=== PATIENT | male | born 1955 | race African-American/Black ===

== ENCOUNTER 2017-09-08 08:12 | Day surgery (SDC) | payer OTHER ==
[2017-09-05 10:46] VITALS: BMI 32.3
[2017-09-08 08:52] VITALS: TEMP 98
--- NOTE | 2017-09-08 11:31 | OP ---
Operative Note - Note: Operative Date: 09/08/17 Pre-Operative Diagnosis: Left Renal stone Operation: Left ESWL Findings: 8 mm mid pole stone Surgeon: Denys Lemos Anesthesia: Fractional
[2017-09-08 12:53] VITALS: BP 119/58; PULSE 66
--- NOTE | 2017-09-09 09:09 | OP ---
DATE OF OPERATION: 09/08/2017 PREOPERATIVE DIAGNOSIS: Left renal stone. POSTOPERATIVE DIAGNOSIS: Left renal stone. PROCEDURE: Left extracorporeal shock wave lithotripsy. ATTENDING: Carlos Noyola MD ANESTHESIA: Fractional. OPERATION: The patient was brought into the operating room, placed in supine position on the operating room table. An 8-mm left mid-pole stone was identified. Anesthesia was then administered as was preoperative antibiotics. Then, 2500 impulses with 20 joules of power were administered to the stone with excellent fragmentation noted under real-time ultrasonography and fluoroscopy. No complications were noted. The patient tolerated the procedure very well. CARLOS NOYOLA M.D. /[id number]
== END 2017-09-08 13:13 | disposition home or self-care (01) ==
LOC: JASU-SURG 08:12
PROVIDERS: ATTEND Urology
PROC: 0TF4XZZ Fragmentation in Left Kidney Pelvis, External Approach (ICD-10-PCS; principal; 2017-09-08 10:15)
DX: N20.0 Calculus of kidney (principal)

== ENCOUNTER 2017-10-06 06:06 | Day surgery (SDC) | payer OTHER ==
[2017-10-02 15:18] VITALS: BMI 32.3
[2017-10-06] MEDS ORDERED: ONDANSETRON 4 MG/2 ML VIAL IVPUSH PRN (08:30)
[2017-10-06] MEDS ORDERED: LACTATED RINGERS SOLUTION 1,000 ML IV SCH (08:30)
[2017-10-06] MEDS ORDERED: oxyCODONE HCL 5 MG TABLET PO PRN (08:30)
--- NOTE | 2017-10-06 09:18 | OP ---
Operative Note - Note: Operative Date: 10/06/17 Pre-Operative Diagnosis: Right kidney stone Operation: Right ESWL Findings: 6 mm mid pole Right kidney stone Post-Operative Diagnosis: Same as Pre-op Surgeon: Denys Lemos Anesthesia: Fractional Operative Report Dictated: Yes
[2017-10-06 13:14] VITALS: BP 126/64; PULSE 70
[2017-10-06 14:31] VITALS: TEMP 98
--- NOTE | 2017-10-06 21:11 | OP ---
DATE OF OPERATION: 10/06/2017 PREOPERATIVE DIAGNOSIS: Right renal stone. POSTOPERATIVE DIAGNOSIS: Right renal stone. PROCEDURE: Right extracorporeal shock wave lithotripsy. ATTENDING: Carlos Noyola MD ANESTHESIA: Fractional. DESCRIPTION OF OPERATION: The patient was brought in the operating room and placed in supine position on the operating room table. Ultrasonography and fluoroscopy were performed. A 6-mm right mid-pole stone was identified. Anesthesia and preoperative antibiotics were then administered. At this point, shock wave lithotripsy was started; 2500 impulses at 20 joules of power were administered. No complications were noted. The patient tolerated the procedure very well. The disposition of the patient was to recovery room. CARLOS NOYOLA M.D. [id number]
== END 2017-10-06 13:26 | disposition home or self-care (01) ==
LOC: JASU-SURG 06:06
PROVIDERS: ATTEND Urology
PROC: 0TF3XZZ Fragmentation in Right Kidney Pelvis, External Approach (ICD-10-PCS; principal; 2017-10-06 08:00)
DX: N20.0 Calculus of kidney (principal)
CPT/HCPCS: 94760

== ENCOUNTER 2017-12-22 06:08 | Day surgery (SDC) | payer OTHER ==
[2017-12-19 07:58] VITALS: BMI 31.9
[2017-12-22] MEDS ORDERED: oxyCODONE HCL 5 MG TABLET PO PRN (08:27)
[2017-12-22] MEDS ORDERED: ONDANSETRON 4 MG/2 ML VIAL IVPUSH PRN (08:27)
[2017-12-22] MEDS ORDERED: LACTATED RINGERS SOLUTION 1,000 ML IV SCH (08:30)
[2017-12-22] MEDS ORDERED: ONDANSETRON 4 MG/2 ML VIAL ONE (10:05)
[2017-12-22 10:13] VITALS: TEMP 97.7
[2017-12-22 12:04] VITALS: BP 135/74; PULSE 62
--- NOTE | 2017-12-22 12:12 | OP ---
Operative Note - Note: Operative Date: 12/22/17 Pre-Operative Diagnosis: bph Operation: transurethral resection and vaporization of the prostate Findings: 3+ obstructive prostate with 1-2 bladder trabeculation Post-Operative Diagnosis: Same as Pre-op Surgeon: Denys Lemos Anesthesia: General Specimens Removed: prostatic chips Drains & Tubes with Location: [address] Operative Report Dictated: Yes
--- NOTE | 2017-12-22 21:00 | OP ---
DATE OF OPERATION: 12/22/2017 PREOPERATIVE DIAGNOSES: Benign prostatic hypertrophy and neurogenic bladder. POSTOPERATIVE DIAGNOSES: Benign prostatic hypertrophy and neurogenic bladder. PROCEDURE: Transurethral resection and vaporization of the prostate. ATTENDING: Carlos Noyola MD ANESTHESIA: General. DESCRIPTION OF OPERATION: The patient was brought in the operating room, placed in supine position on the operating room table. General anesthesia and preoperative antibiotics were administered. At this point, the patient was placed in dorsal lithotomy position and prepped and draped in the usual sterile manner. A resectoscope with a loop element was placed into the urethra, and the prostatic fossa was visualized. A 3+ obstructive prostate with a moderate median lobe was noted, and 1+ to 2+ bladder trabeculation was noted in the bladder. No evidence of stones or neoplasm was seen. Resection of the prostate was performed with the margins being the verumontanum distally and the bladder neck proximally. The bipolar system was utilized with the loop element. The prostate was initially debulked. With this accomplished, all prostatic elements were removed. It was noted at this point that there was a broken tip of the resectoscope. The bladder was inspected, and the porcelain pieces from the tip of the resectoscope were evacuated from the bladder. There were no other remnants left in the bladder. The remnants measured a few millimeters in size. At this point, the button element was placed on the resectoscope, and vaporization of the prostate was performed extending from the bladder neck to the verumontanum in a 360-degree fashion. The depths of the vaporization were the pseudocapsule of the prostate. Excellent hemostasis was obtained. The patient was left with a 24-Maldivian catheter to light traction. No complications were noted. The disposition of the patient was to the recovery room. CARLOS NOYOLA M.D. [id number]
--- NOTE | 2017-12-23 17:16 | PATH ---
Surgical Pathology Report Patient Name: YOJANA SPENCE [facility]. Rec. #: [id number] /Age/Gender: 1955 (Age: 62) / M Account: [id number] Location: [facility] Taken: 12/22/2017 Received: 12/22/2017 Reported: 12/23/2017 Physicians: Denys Lemos Specimen(s) Received TISSUE OF PROSTATE Clinical History BPH Final Diagnosis PROSTATE, TRANSURETHRAL RESECTION OF PROSTATE: BENIGN PROSTATIC TISSUE WITH FOCAL CYSTIC CHANGES, GLANDULAR AND STROMAL HYPERPLASIA. Electronically Signed aFith Mckeon M.D. Gross Description Received in formalin labeled "prostate tissue" are multiple fragments of pink-graham tissue weighing 6 g and measuring 4 x 4 x 1 cm in aggregate. Entire specimen submitted in 3 cassettes. JUAN CARLOS/12/22/2017 vic/12/22/2017
== END 2017-12-22 12:00 | disposition home or self-care (01) ==
LOC: JASU-SURG 06:08
PROVIDERS: ATTEND Urology
PROC: 0VT08ZZ Resection of Prostate, Via Natural or Artificial Opening Endoscopic (ICD-10-PCS; principal; 2017-12-22 08:00)
DX: N40.1 Benign prostatic hyperplasia with lower urinary tract symptoms (principal); N31.8 Other neuromuscular dysfunction of bladder; Z21 Asymptomatic human immunodeficiency virus [HIV] infection status
CPT/HCPCS: 86850; 86900; 86901; 88305-TC; 94760

== ENCOUNTER 2018-03-17 08:59 | Day surgery (SDC) | payer OTHER ==
[2018-03-17 09:53] VITALS: BMI 32.3
[2018-03-17 10:42] VITALS: TEMP 97.5
[2018-03-17 11:35] VITALS: BP 130/66; PULSE 60
--- NOTE | 2018-03-18 10:09 | PATH ---
Surgical Pathology Report Patient Name: YOJANA SPENCE [facility]. Rec. #: [id number] /Age/Gender: 1955 (Age: 62) / M Account: [id number] Location: [facility]-ENDOSCOPY Taken: 03/17/2018 Received: 03/17/2018 Reported: 03/18/2018 Physicians: Armond Hernandez D.O. Specimen(s) Received BX SIGMOID Clinical History Colon screening, change in bowel habits Postoperative diagnosis: Colon polyp, hemorrhoids Final Diagnosis SIGMOID COLON, POLYP BIOPSY: HYPERPLASTIC POLYP. Electronically Signed Faith Mckeon M.D. Gross Description Received in formalin, labeled "sigmoid polyp" is a graham, irregular portion of soft tissue measuring 0.3 cm. in greatest dimension. The specimen is submitted in toto in one cassette. /03/17/2018 saudi03/17/2018
== END 2018-03-17 12:05 | disposition home or self-care (01) ==
LOC: JASU-ENDO 08:59
PROVIDERS: ATTEND Internal Medicine Gastroenterology
PROC: 0DBN8ZX Excision of Sigmoid Colon, Via Natural or Artificial Opening Endoscopic, Diagnostic (ICD-10-PCS; principal; 2018-03-17 09:30)
DX: K63.5 Polyp of colon (principal); R19.4 Change in bowel habit; K64.8 Other hemorrhoids
CPT/HCPCS: 88305-TC

== ENCOUNTER 2019-02-15 11:04 | Emergency (ER) | payer OTHER ==
[2019-02-15] MEDS ORDERED: SODIUM CHLORIDE 1,000 ML IV STA (12:37)
[2019-02-15 12:38] VITALS: BP 133/77; PULSE 64; TEMP 97.8; BMI 30.9
[2019-02-15] MEDS ORDERED: ACETAMINOPHEN 1000 MG/100 ML VIAL (NON FORMULARY) IVPB ONE (12:38)
--- NOTE | 2019-02-15 13:01 | PDOC ---
History of Present Illness - General Chief Complaint: Headache Stated Complaint: HEADACHE Time Seen by Provider: 02/15/19 12:02 History Source: Patient - History of Present Illness Initial Comments: 02/15/19 12:08 63-year-old male with history of HIV and depression presents to ED with c/o throbbing pressure to his forehead since Friday after taking Cialis 20 mg 1 hour prior to onset. Patient states took 20 mg and during sexual intercourse she developed a headache. Patient denies any visual changes, weakness, nausea but does state mild dizziness. Patient states has taken Advil and Excedrin with no improvement and so decided to come to the ER. Patient also states intermittent low back pain with mild urinary frequency over the past week without fever, chills abdominal pain or hematuria. Timing/Duration: reports: other Severity: Yes: mild Associated Symptoms: reports: other. denies: nausea/vomiting, slurred speech, vision changes, weakness Past History - Travel Traveled outside of the country in the last 30 days: No - Past Medical History Allergies/Adverse Reactions: Allergies Allergy/AdvReac Type Severity Reaction Status Date / Time No Known Allergies Allergy Verified 02/15/19 12:37 Home Medications: Ambulatory Orders Elviteg/Cob/Emtri/Tenof Alafen [Genvoya (Non-Formulary)] 1 each PO DAILY #30 tablet 09/14/18 Pravastatin Sodium 10 mg PO HS #30 tablet 09/14/18 Tamsulosin HCl [Flomax] 2 tab PO DAILY #60 cap.er.24h 09/14/18 Citalopram Hydrobromide [Celexa -] 20 mg PO DAILY #30 tablet 01/28/19 Quetiapine Fumarate [Seroquel] 100 tab PO HS #30 tablet 01/28/19 Anemia: No Asthma: No Cancer: No Cardiac Disorders: No CVA: No COPD: No CHF: No Dementia: No Diabetes: No GI Disorders: Yes (COLON POLYPS) Disorders: Yes (BPH) HTN: No Hypercholesterolemia: Yes HIV: Yes Kidney Stones: No Liver Disease: No Psychiatric Problems: Yes Seizures: No Thyroid Disease: No - Surgical History Abdominal Surgery: No Appendectomy: No Cardiac Surgery: No Cholecystectomy: No Lung Surgery: No Neurologic Surgery: No Orthopedic Surgery: No - Reproductive History Testicular Surgery: No - Immunization History Immunization Up to Date: No - Suicide/Smoking/Psychosocial Hx Smoking History: Current every day smoker Have you smoked in the past 12 months: Yes Number of Cigarettes Smoked Daily: 3 If you are a former smoker, when did you quit?: 3 Cigars Per Day: 0 Information on smoking cessation initiated: No 'Breaking Loose' booklet given: 12/22/17 Hx Alcohol Use: Yes Drug/Substance Use Hx: Yes Substance Use Type: None Hx Substance Use Treatment: No Patient Lives Alone: No Lives with/in: spouse/SO Review of Systems - Review of Systems Able to Perform ROS?: Yes Constitutional: No: Symptoms Reported HEENTM: No: Symptoms Reported Respiratory: No: Symptoms reported Cardiac (ROS): No: Symptoms Reported ABD/GI: No: Symptoms Reported : Yes: Symptoms Reported, Frequency Musculoskeletal: Yes: Symptoms Reported, Back Pain Integumentary: No: Symptoms Reported Neurological: Yes: Headache. No: Numbness, Weakness, Dizziness Psychiatric: No: Change in Appetite Endocrine: No: Symptoms Reported Hematologic/Lymphatic: No: Symptoms Reported *Physical Exam - Vital Signs Last Vital Signs Temp Pulse Resp BP Pulse Ox 97.8 F 64 18 133/77 96 02/15/19 11:05 02/15/19 11:05 02/15/19 11:05 02/15/19 11:05 02/15/19 11:05 - Physical Exam General Appearance: Yes: Nourished, Appropriately Dressed. No: Apparent Distress, Severe Distress HEENT: positive: EOMI, ROBERTO. negative: Pale Conjunctivae Neck: positive: Supple Respiratory/Chest: positive: Lungs Clear, Normal Breath Sounds. negative: Respiratory Distress, Accessory Muscle Use Cardiovascular: positive: Regular Rhythm, Regular Rate. negative: Murmur Gastrointestinal/Abdominal: positive: Soft. negative: Tenderness Musculoskeletal: positive: Vertebral Tenderness (L3-L4 and bilateral paraspinous ). negative: CVA Tenderness Extremity: positive: Normal Inspection Integumentary: positive: Normal Color, Warm, Moist Neurologic: positive: Motor Strength 5/5 (ambulatory). negative: Normal Mood/ Affect (flat affect) ED Treatment Course - LABORATORY CBC & Chemistry Diagram: 02/15/19 14:00 02/15/19 14:00 - RADIOLOGY Radiology Studies Ordered: Category Date Time Status HEAD CT WITHOUT CONTRAST [CT] Stat CT Scan 02/15/19 12:34 Ordered SPINE-LUMBAR ONLY [RAD] Stat Radiology 02/15/19 12:34 Ordered Medical Decision Making - Medical Decision Making 02/15/19 12:04 Chief complaint: Frontal throbbing pressure to the forehead since Friday without nausea, visual changes or weakness. Patient also complaining of low back pain intermittently along with urinary frequency for the past 2 weeks Exam. Patient with normal vital signs but did have tenderness to L3-L4 without CVA tenderness. Plan: Labs, urine, IV fluids, IV Tylenol head CT and lumbar x-ray ordered 02/15/19 17:15 X-ray shows arthritic changes with no findings. head CT negative for acute pathology. patient states feeling better 02/15/19 17:16 Laboratory Tests 02/15/19 02/15/19 02/15/19 14:00 14:00 14:00 WBC 3.6 L Hgb 13.4 Hct 37.8 Absolute Neuts (auto) 1.4 L Neutrophils % 38.9 L Lymphocytes % 47.7 H Sodium 140 Potassium 3.6 Chloride 108 H Carbon Dioxide 28 Anion Gap 5 L BUN 10.4 Creatinine 0.8 Random Glucose 83 Calcium 8.9 Total Bilirubin 0.4 AST 26 ALT 28 Alkaline Phosphatase 81 Total Protein 6.8 Albumin 3.6 Urine Ketones Negative Ur Leukocyte Esterase Negative 02/15/19 17:22 Patient didn't want to wait for his CT and x-ray. Patient was given AMA forms. Results were reviewed with him over the phone *DC/Admit/Observation/Transfer Diagnosis at time of Disposition: Head ache - Discharge Dispostion Disposition: HOME Condition at time of disposition: Improved - Referrals Referrals: Rachana Edgar, [employer] [Primary Care Provider] - - Patient Instructions Printed Discharge Instructions: DI for Headache Additional Instructions: Take Tylenol for discomfort drink plenty of fluids and follow-up with your primary care physician. - Post Discharge Activity
[2019-02-15] MEDS ORDERED: ACETAMINOPHEN INJECTION 100 ML IVPB ONE (13:47)
[2019-02-15 14:28] LABS: EOS % 3.2 % (0-4.5); HEMATOCRIT 37.8 % (35.4-49); HEMOGLOBIN 13.4 GM/dL (11.7-16.9); LYMPH % 47.7 % (8-40); MCH 32.8 pg (25.7-33.7); MCHC 35.5 g/dl (32.0-35.9); MEAN CELL VOLUME 92.3 fl (80-96); MEAN PLT VOLUME 8.5 fl (7.5-11.1); MONO % 9.2 % (3.8-10.2); NEUT % 38.9 % (42.8-82.8); PLATELET COUNT 239 K/MM3 (134-434); RDW 13.6 % (11.9-15.9); WHITE BLOOD COUNT 3.6 K/mm3 (4.0-10.0)
[2019-02-15 14:58] LABS: ALBUMIN 3.6 g/dl (3.4-5.0); BILIRUBIN,TOTAL 0.4 mg/dL (0.2-1); BLOOD UREA NITROGEN 10.4 mg/dL (7-18); CALCIUM 8.9 mg/dL (8.5-10.1); CREATININE 0.8 mg/dL (0.55-1.3); POTASSIUM 3.6 mmol/L (3.5-5.1); TOT PROT 6.8 g/dl (6.4-8.2)
[2019-02-15 15:17] LABS: URINE APPEARANCE Clear; URINE BILIRUBIN Negative (NEGATIVE); URINE COLOR Yellow; URINE GLUCOSE (UA) Negative (NEGATIVE); URINE KETONE Negative (NEGATIVE); URINE LEUK ESTERASE Negative (NEGATIVE); URINE NITRITE Negative (NEGATIVE); URINE PROTEIN Negative (NEGATIVE); URINE UROBILINOGEN 0.2 mg/dL (0.2-1.0)
== END 2019-02-15 16:39 | disposition home or self-care (01) ==
LOC: JER 11:04
PROC: 3E033NZ Introduction of Analgesics, Hypnotics, Sedatives into Peripheral Vein, Percutaneous Approach (ICD-10-PCS; principal; 2019-02-15)
DX: G44.82 Headache associated with sexual activity (principal); Z21 Asymptomatic human immunodeficiency virus [HIV] infection status; E78.00 Pure hypercholesterolemia, unspecified; N40.0 Benign prostatic hyperplasia without lower urinary tract symptoms
CPT/HCPCS: 36415; 70450-TC; 72100-TC-FY; 80053; 81003; 85025; 87086; 96374; 99282-25; J0131; J7030

== ENCOUNTER → 2019-03-09 | Outpatient (CLI) | payer OTHER | LOC: YHH 11:47 ==

== ENCOUNTER 2020-02-07 11:20 | Day surgery (SDC) | payer OTHER ==
[2020-02-04 17:42] VITALS: BMI 30.3
[2020-02-07] MEDS ORDERED: MIDAZOLAM HCL 2 MG/2 ML SINGLE DOSE VIAL ONE (13:55)
--- NOTE | 2020-02-07 14:51 | OP ---
Operative Note - Note: Operative Date: 02/07/20 Pre-Operative Diagnosis: Right renal stone Operation: Right ESWL Findings: 8 mm mid pole Right renal stone Surgeon: Denys Lemos Anesthesia: Regional Estimated Blood Loss (mls): 0 Operative Report Dictated: Yes
[2020-02-07 16:06] VITALS: BP 109/48; PULSE 53; TEMP 97.3
--- NOTE | 2020-02-07 23:33 | OP ---
DATE OF OPERATION: 02/07/2020 PREOPERATIVE DIAGNOSIS: Right renal stone. POSTOPERATIVE DIAGNOSIS: Right renal stone. PROCEDURE: Right extracorporeal shockwave lithotripsy. ATTENDING: Cralos Lemos M.D. ANESTHESIA: Fractional. DESCRIPTION OF PROCEDURE: Patient was brought in the operating room, placed in a supine position on the operating room table. Ultrasonography and fluoroscopy were performed. An 8-mm right midpole stone was identified. At this point anesthesia was administered to the patient as were preoperative antibiotics. Shockwave lithotripsy was then started. The patient received 3000 impulses at 17 joules of power with excellent fragmentation of the stone under real-time ultrasonography and fluoroscopy. There were no complications noted. The patient tolerated the procedure very well. CARLOS NOYOLA M.D. [id number]
== END 2020-02-07 16:05 | disposition home or self-care (01) ==
LOC: JASU-SURG 11:20
PROVIDERS: ATTEND Urology
PROC: 0TF3XZZ Fragmentation in Right Kidney Pelvis, External Approach (ICD-10-PCS; principal; 2020-02-07 13:40)
DX: N20.0 Calculus of kidney (principal)

== ENCOUNTER 2020-03-03 09:45 | Inpatient (IN) | payer OTHER ==
[2020-03-03 09:50] VITALS: BMI 30.6
--- NOTE | 2020-03-03 10:21 | PDOC ---
History of Present Illness - General Chief Complaint: Pain, Acute Stated Complaint: KIDNEY STONES Time Seen by Provider: 03/03/20 10:15 - History of Present Illness Initial Comments: Angle Goncalves is a 64yo man with a PMH of HIV on HAART, BPH, kidney stones s/p ESWL (02/07/20, Dr Lemos), seen in the ED yesterday and found to have a 5mm right renal stone who was sent back to the hospital today from Dr Lemos's office with intractable pain and PO intolerance. He states that he was given ibuprofen from the ED yesterday, but the medication has not been helping despite taking 5 doses since his discharge yesterday (600mg every 2-3 hours). He was seen by Dr Lemos today, who plans to take the pt to the OR today due to the continued pain and multiple episodes of vomiting throughout the night. Past History - Medical History Allergies/Adverse Reactions: Allergies Allergy/AdvReac Type Severity Reaction Status Date / Time No Known Allergies Allergy Verified 03/03/20 09:46 Home Medications: Ambulatory Orders Bictegrav/Emtricit/Tenofov Ala [Biktarvy 50-200-25 mg Tablet] 1 each PO DAILY #30 tablet 01/12/20 Oxybutynin Chloride [Oxybutynin Chloride ER] 1 tab PO DAILY #30 tab.er.24 01/12/20 Tamsulosin HCl [Flomax] 2 tab PO DAILY #60 cap.er.24h 01/12/20 Docusate Sodium [Colace] 100 mg PO BID PRN 02/04/20 Citalopram Hydrobromide [Celexa -] 1 tab PO DAILY #30 tablet 02/17/20 Quetiapine Fumarate [Seroquel -] 100 mg PO HS #30 tablet 02/17/20 Ibuprofen 600 mg PO TID #21 tablet 03/02/20 Anemia: No Asthma: No Cancer: No Cardiac Disorders: No CVA: No COPD: No CHF: No Dementia: No Diabetes: No GI Disorders: Yes (COLON POLYPS) Disorders: Yes (BPH) HTN: No Hypercholesterolemia: Yes Kidney Stones: No Liver Disease: No Psychiatric Problems: Yes Seizures: No Thyroid Disease: No - Surgical History Abdominal Surgery: No Appendectomy: No Cardiac Surgery: No Cholecystectomy: No Lung Surgery: No Neurologic Surgery: No Orthopedic Surgery: No - Reproductive History Testicular Surgery: No - Immunization History Immunization Up to Date: No - Psycho-Social/Smoking History Smoking History: Current every day smoker Have you smoked in the past 12 months: Yes Number of Cigarettes Smoked Daily: 3 If you are a former smoker, when did you quit?: 3 Cigars Per Day: 0 Information on smoking cessation initiated: No 'Breaking Loose' booklet given: 12/22/17 - Substance Abuse Hx (Audit-C & DAST Scrn) How often the patient has a drink containing alcohol: Never Score: In Men: 4 or > Positive; In Women: 3 or > Positive: 0 Screen Result (Pos requires Nsg. Audit-10AR): Negative Review of Systems - Review of Systems Comments:: General: No fevers, no chills, no weight or appetite change, no malaise HEENT: No changes in vision, no changes in hearing, no congestion, no sore throat CV: No chest pain, no palpitations, no LE edema Pulm: No SOB, no cough, no wheezing GI: No nausea or vomiting, no change in bowel habits, no melena : See HPI Musc: No back pain, no joint swelling, no recent injury Skin: No rash, no lesions, no erythema Endo: No excessive thirst, no heat/cold intolerance Heme: No unusual bruising or bleeding, no swollen glands Neuro: No syncope, no numbness/tingling, no focal weakness Vasc: No claudication Psych: No recent change in mood, no SI or HI *Physical Exam - Vital Signs Last Vital Signs Temp Pulse Resp BP Pulse Ox 97.9 F 74 18 139/83 99 03/03/20 09:46 03/03/20 09:46 03/03/20 09:46 03/03/20 09:46 03/03/20 09:46 - Physical Exam General: Comfortable, no acute distress HEENT: Atraumatic, PERRL, EOMI, MMM, voice normal, normal neck ROM Cards: RRR, no murmur appreciated Pulm: Comfortable on room air, clear to auscultation bilaterally Abd: Soft, nondistended. RLQ TTP. No peritoneal signs : Rt CVA TTP, suprapubic tenderness Ext: Atraumatic. No LE edema. ROM intact. WWP Skin: Normal color, no rashes or lesions Neuro: A&Ox3, CN grossly intact, normal speech, motor/sensory grossly intact and symmetric Psych: Mood appropriate to situation ED Treatment Course - LABORATORY CBC & Chemistry Diagram: 03/03/20 10:30 03/03/20 10:30 Medical Decision Making - Medical Decision Making 03/03/20 10:21 Angle Goncalves is a 64yo man with a PMH of HIV on HAART, BPH, kidney stones s/p ESWL (02/07/20, Dr Lemos), known 5mm rt kidney stone (ED yesterday) who presents to the ED from Dr Lemos's office with worsening pain despite home analgesics and PO intolerance. - Spoke to Dr Lemos's office, plan for OR today - CBC, CMP, T&S, coags, UA, UCx, EKG, CXR - NPO - IVF, pain meds - Will send microblog for admission 03/03/20 11:41 - Worsening pain, 4mg IV morphine given - Labs reviewed. Notable for creat increase to 1.6 from 1.3 yesterday. No other concerning abnormalities. EKG and CXR unremarkable - Sign out given to Dr Cabral. Will admit to med/surg on Dr Swanson's service. Discussed with Dr Wilbert Jordan PGY3 Discharge - Discharge Information Problems reviewed: Yes Clinical Impression/Diagnosis: Flank pain with history of urolithiasis, Renal colic on right side, Intractable pain Vomiting Qualifiers: Vomiting type: unspecified Vomiting Intractability: unspecified Nausea presence: with nausea Qualified Code(s): R11.2 - Nausea with vomiting, uns pecified Condition: Stable - Admission Yes - Follow up/Referral Referrals: Sherri Alvarez NP [Primary Care Provider] - - Patient Discharge Instructions - Post Discharge Activity
[2020-03-03] MEDS ORDERED: ACETAMINOPHEN 1000 MG/100 ML VIAL (NON FORMULARY) IVPB ONE (10:22)
[2020-03-03] MEDS ORDERED: LACTATED RINGERS SOLUTION 1000 ML INFUS.BAG IV ONE (10:22)
[2020-03-03] MEDS ORDERED: ACETAMINOPHEN INJECTION 100 ML IVPB ONE (10:25)
[2020-03-03 10:48] LABS: BASO % 1.3 % (0-2.0); EOS % 0.5 % (0-4.5); HEMATOCRIT 37.1 % (35.4-49); HEMOGLOBIN 12.9 GM/dL (11.7-16.9); MCH 32.6 pg (25.7-33.7); MCHC 34.8 g/dl (32.0-35.9); MEAN CELL VOLUME 93.7 fl (80-96); MEAN PLT VOLUME 8.4 fl (7.5-11.1); MONO % 9.2 % (3.8-10.2); PLATELET COUNT 265 K/MM3 (134-434); RBC 3.96 M/mm3 (4.00-5.60); RDW 13.8 % (11.9-15.9); WHITE BLOOD COUNT 5.7 K/mm3 (4.0-10.0)
[2020-03-03] MEDS ORDERED: ONDANSETRON 4 MG/2 ML VIAL IVPUSH ONE (10:51)
[2020-03-03] MEDS ORDERED: FAMOTIDINE 20 MG/50 ML IVPB 20 MG/50 ML MG IVPB ONE ×2 (10:51→10:59)
[2020-03-03 10:57] LABS: INR 1.13 (0.83-1.09); PROTHROMBIN TIME (PATIENT) 13.4 SEC (9.7-13.0)
[2020-03-03] MEDS ORDERED: morphine CARPU-JECT 4 MG/1 ML DISP.SYRIN IVPUSH ONE (11:07)
[2020-03-03] MEDS ORDERED: morphine SULFATE 4 MG/ML VIAL ONE (11:08)
--- NOTE | 2020-03-03 11:11 | PDOC ---
Documentation entered by Veena Candelaria SCRIBE, acting as scribe for Deborah Atkins MD. Deborah Atkins MD: This documentation has been prepared by the minee, Veena Horowitz SCRIBE, under my direction and personally reviewed by me in its entirety. I confirm that the documentation accurately reflects all work, treatment, procedures, and medical decision making performed by me. Attending Attestation - Resident Resident Name: Brittanie Jordan - ED Attending Attestation I have performed the following: I have examined & evaluated the patient, The case was reviewed & discussed with the resident, I agree w/resident's findings & plan, Exceptions are as noted - HPI HPI: 03/03/20 11:00 The patient is a 64 year old male with a significant PMH of HIV on HAART, BPH, kidney stones s/p ESWL (02/07/20, Dr Lemos) who presents to the emergency department sent by urologist, Dr. Lemos, for evaluation of intractable pain and PO intolerance since being diagnosed with a 5mm right renal stone yesterday while in the ED. Patient notes he was sent home on ibuprofen which he has been taking 600 mg every 2-[address] Lemos, he plans to take him to the OR today. The patient denies chest pain, shortness of breath, headache and dizziness. Denies fever, chills, diarrhea and constipation. Denies dysuria, frequency, urgency and hematuria. Allergies: NKA Social history: No reported hx of tobacco use, alcohol use or illicit drug use. Urologist: Aminta - Physicial Exam PE: GENERAL: Awake, alert, and fully oriented. Appears uncomfortable HEAD: No signs of trauma EYES: PERRLA, EOMI, sclera anicteric, conjunctiva clear ENT: Auricles normal inspection, hearing grossly normal, nares patent, oropharynx clear without exudates. Moist mucosa NECK: Normal ROM, supple, no lymphadenopathy, JVD, or masses LUNGS: Breath sounds equal, clear to auscultation bilaterally. No wheezes, and no crackles HEART: Regular rate and rhythm, normal S1 and S2, no murmurs, rubs or gallops ABDOMEN: Soft, +R mid-abdominal tenderness and R CVAT, normoactive bowel sounds. No guarding, no rebound. No masses EXTREMITIES: Normal range of motion, no edema. No clubbing or cyanosis. No cords, erythema, or tenderness NEUROLOGICAL: Cranial nerves II through XII grossly intact. Normal speech, normal gait. Motor and sensation intact SKIN: Warm, dry, normal turgor, no rashes or lesions noted. - Medical Decision Making 03/03/20 11:11 Pt with kidney stones, sent by Dr. Froylan Elaine for admission for procedure. Will give analgesics, zofran, and pepcid (as he was taking large doses of motrin). Discharge - Discharge Information Problems reviewed: Yes Clinical Impression/Diagnosis: Flank pain with history of urolithiasis, Renal colic on right side, Intractable pain Vomiting Qualifiers: Vomiting type: unspecified Vomiting Intractability: unspecified Nausea presence: with nausea Qualified Code(s): R11.2 - Nausea with vomiting, uns pecified Condition: Stable - Follow up/Referral Referrals: Sherri Alvarez NP [Primary Care Provider] - - Patient Discharge Instructions - Post Discharge Activity
--- NOTE | 2020-03-03 11:18 | PN ---
Teaching Attending Note Name of Resident: Jonathan Cabral ATTENDING PHYSICIAN STATEMENT I saw and evaluated the patient. I reviewed the resident's note and discussed the case with the resident. I agree with the resident's findings and plan as documented. SUBJECTIVE: 64yo man AAM with a PMH of HIV on HAART, BPH, kidney stones s/p ESWL (02/07/20, Dr Lemos) who was sent back to the ED today by Dr Lemos secondary to persistent abdominal pains associated with vomiting. 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 Multiple ureteral stones -complicated by hydronephrosis - to OR today - pain control 2. cardiovascular risk assessment: Able to perform activities of daily living wihtout chest pains or shortness of breath. Just underwent surgery for renal stones about 3 weeks ago and tolerated procedure well. EKG pending. In the absence of any acute changes patient is an acceptable candidate for surgery and may proceed with ESWL or urologic surgery without further testing 3. DVT prophylaxis
[2020-03-03 11:20] LABS: ALBUMIN 3.9 g/dl (3.4-5.0); BILIRUBIN,TOTAL 0.8 mg/dL (0.2-1); BLOOD UREA NITROGEN 13.7 mg/dL (7-18); CALCIUM 8.8 mg/dL (8.5-10.1); CREATININE 1.6 mg/dL (0.55-1.3); TOT PROT 7.1 g/dl (6.4-8.2)
[2020-03-03 11:53] LABS: URINE APPEARANCE Clear; URINE BILIRUBIN Negative (NEGATIVE); URINE COLOR Yellow; URINE GLUCOSE (UA) Negative (NEGATIVE); URINE KETONE Trace (NEGATIVE); URINE LEUK ESTERASE Trace (NEGATIVE); URINE NITRITE Negative (NEGATIVE); URINE PROTEIN 2+ (NEGATIVE); URINE UROBILINOGEN 0.2 mg/dL (0.2-1.0)
[2020-03-03] MEDS ORDERED: DOCUSATE SODIUM 100 MG CAPSULE (FP) PO PRN ×2 (12:42→19:31)
[2020-03-03] MEDS ORDERED: MORPHINE SULFATE 2 MG/ML VIAL IVPUSH PRN (12:42)
[2020-03-03] MEDS ORDERED: SODIUM CHLORIDE 1,000 ML IV SCH (12:45)
[2020-03-03] MEDS ORDERED: ONDANSETRON 4 MG/2 ML VIAL IVPUSH PRN ×2 (12:49→19:31)
--- NOTE | 2020-03-03 13:12 | HP ---
CHIEF COMPLAINT: Right-sided CVA tenderness PCP: HISTORY OF PRESENT ILLNESS: 64M w/ pmh of HIV(250 viral count), HLD, chronic tobacco, BPH, Right renal stone(sp ExtraCorpeal Shock Wave Lithrotripsy w/ [facility] 02/07/20) sent in from Urology office([facility]) for concern of continued nausea, vomiting, and contin ued severe Right-sided abdominal pain. Has had 2d of clamping, poking pain; radiating to the naval area, and testicles. Pain was sudden in onset, 2d prior. Has vomiting x6 over two days, consisting of clear fluid. Had diarrhea x2. Was seen at [facility], yesterday with similar symptoms. Dr Lemos was consulted, who recommended fu in his office on 03/03/20 in the AM and pt could take NSAIDs for pain relief. Pt has been taking Ibuprofen 600mg x5 tabs since yesterday, which provided little relief. Pain was 10 of 10; now 5 of 10 after ED morphine. Nausea improved after Pepcid. Has been drinking more water, as instructed by the EM physicians. Denies seeing bloody/discoloration of urine. Has weak urinary stream. Has an upcoming appointment(03/06/20) for Left-sided kidney kidney procedure(shockwave?). Lives alone in apartment. 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 ER course was notable for: 1-Afeb, HR 74, BP 139/83/ RR 18, 99%(RA) 2-(+) R-sided CVA tenderness 3-no leukocytosis 4-UA(03/02/20): trace protein, neg blood, neg LE, neg nitrite 5-CXR(03/03/20): neg acute, weak inspiration 6-CT A/P(03/02/20): 5mm Right mid ureteral stone w/ mild-mod proximal hydronephrosis. B/l renal stones are seen, the largest 3mm on Left and 2-3mm on the Right. 2 Right renal cysts(4.9cm, 6.0cm). Left renal cyst(3.1cm). No Left ureteral stones or hydronephrosis. Prostate gland is enlarged, measuring 5.5cm, indenting posterior wall of the urinary bladder. Sigmoid diverticutlosis. Small- mod Left inguinal fat-containing hernia. 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 Allergies No Known Allergies Allergy (Verified 03/03/20 09:46) HOME MEDICATIONS: Home Medications Medication Instructions Recorded Bictegrav/Emtricit/Tenofov Ala 1 each PO DAILY #30 tablet 01/12/20 [Biktarvy 50-200-25 mg Tablet] Oxybutynin Chloride [Oxybutynin 1 tab PO DAILY #30 tab.er.24 01/12/20 Chloride ER] Tamsulosin HCl [Flomax] 2 tab PO DAILY #60 cap.er.24h 01/12/20 Docusate Sodium [Colace] 100 mg PO BID PRN 02/04/20 Citalopram Hydrobromide [Celexa -] 1 tab PO DAILY #30 tablet 02/17/20 Quetiapine Fumarate [Seroquel -] 100 mg PO HS #30 tablet 02/17/20 Ibuprofen 600 mg PO TID #21 tablet 03/02/20 REVIEW OF SYSTEMS CONSTITUTIONAL: Absent: fever, chills, diaphoresis, generalized weakness, malaise, loss of appetite, weight change HEENT: Absent: rhinorrhea, nasal congestion, throat pain, throat swelling, difficulty swallowing, mouth swelling, ear pain, eye pain, visual changes CARDIOVASCULAR: Absent: chest pain, syncope, palpitations, irregular heart rate, lightheadedness, peripheral edema RESPIRATORY: Absent: cough, shortness of breath, dyspnea with exertion, orthopnea, wheezing, stridor, hemoptysis GASTROINTESTINAL: nausea, vomiting Absent: abdominal pain, abdominal distension, diarrhea, constipation, melena, hematochezia GENITOURINARY: Absent: dysuria, frequency, urgency, hesitancy, hematuria, flank pain, genital pain MUSCULOSKELETAL: Absent: myalgia, arthralgia, joint swelling, back pain, neck pain SKIN: Absent: rash, itching, pallor HEMATOLOGIC/IMMUNOLOGIC: Absent: easy bleeding, easy bruising, lymphadenopathy, frequent infections ENDOCRINE: Absent: unexplained weight gain, unexplained weight loss, heat intolerance, cold intolerance NEUROLOGIC: Absent: headache, focal weakness or paresthesias, dizziness, unsteady gait, seizure, mental status changes, bladder or bowel incontinence PSYCHIATRIC: Absent: anxiety, depression, suicidal or homicidal ideation, hallucinations. PHYSICAL EXAMINATION Vital Signs - 24 hr 03/03/20 03/03/20 09:46 12:29 Temperature 97.9 F 98.5 F Pulse Rate 74 Pulse Rate [ 52 L Left] Respiratory 18 Rate Blood Pressure 139/83 Blood Pressure 108/54 L [Left] O2 Sat by Pulse 99 98 Oximetry (%) GENERAL: Awake, alert, and fully oriented, in no acute distress. HEAD: Normal with no signs of trauma. EYES: extraocular movements intact, sclera anicteric, conjunctiva clear. EARS, NOSE, THROAT: Ears normal, nares patent, oropharynx clear without exudates. NECK: Normal range of motion, supple without lymphadenopathy, JVD, or masses. LUNGS: Breath sounds equal, clear to auscultation bilaterally. No wheezes, and no crackles. No accessory muscle use. HEART: Regular rate and rhythm, normal S1 and S2 without murmur, rub or gallop. ABDOMEN: Soft, nontender, not distended, normoactive bowel sounds. +Right-sided CVA tenderness MUSCULOSKELETAL: Normal range of motion at all joints. No bony deformities or tenderness. UPPER EXTREMITIES: 2+ pulses, warm, well-perfused. No cyanosis. LOWER EXTREMITIES: 2+ pulses, warm, well-perfused. No calf tenderness. No peripheral edema. NEUROLOGICAL: Moving all extremities spontaneously. Normal speech. SKIN: Warm, dry, normal turgor, no rashes or lesions noted, normal capillary refill. Laboratory Results - last 24 hr 03/03/20 03/03/20 03/03/20 10:30 10:30 10:30 WBC 5.7 RBC 3.96 L Hgb 12.9 Hct 37.1 MCV 93.7 MCH 32.6 MCHC 34.8 RDW 13.8 Plt Count 265 MPV 8.4 Absolute Neuts (auto) 3.7 Neutrophils % 65.0 Lymphocytes % 24.0 D Monocytes % 9.2 Eosinophils % 0.5 Basophils % 1.3 Nucleated RBC % 0 PT with INR 13.40 H INR 1.13 H PTT (Actin FS) 28.0 Sodium 137 Potassium 4.0 Chloride 105 Carbon Dioxide 24 Anion Gap 8 BUN 13.7 Creatinine 1.6 H Est GFR (CKD-EPI)AfAm 51.99 Est GFR (CKD-EPI)NonAf 44.86 Random Glucose 103 Calcium 8.8 Total Bilirubin 0.8 AST 28 ALT 27 Alkaline Phosphatase 85 Total Protein 7.1 Albumin 3.9 Urine Color Urine Appearance Urine pH Ur Specific [place] Urine Protein Urine Glucose (UA) Urine Ketones Urine Blood Urine Nitrite Urine Bilirubin Urine Urobilinogen Ur Leukocyte Esterase Blood Type Antibody Screen 03/03/20 03/03/20 10:30 10:40 WBC RBC Hgb Hct MCV MCH MCHC RDW Plt Count MPV Absolute Neuts (auto) Neutrophils % Lymphocytes % Monocytes % Eosinophils % Basophils % Nucleated RBC % PT with INR INR PTT (Actin FS) Sodium Potassium Chloride Carbon Dioxide Anion Gap BUN Creatinine Est GFR (CKD-EPI)AfAm Est GFR (CKD-EPI)NonAf Random Glucose Calcium Total Bilirubin AST ALT Alkaline Phosphatase Total Protein Albumin Urine Color Yellow Urine Appearance Clear Urine pH 6.0 D Ur Specific [place] 1.025 Urine Protein 2+ H Urine Glucose (UA) Negative Urine Ketones Trace Urine Blood Negative Urine Nitrite Negative Urine Bilirubin Negative Urine Urobilinogen 0.2 Ur Leukocyte Esterase Trace Blood Type AB POSITIVE Antibody Screen Negative ASSESSMENT/PLAN: 64M w/ pmh of HIV(250 viral count), HLD, chronic tobacco, BPH, Right renal stone(sp ExtraCorpeal Shock Wave Lithrotripsy w/ [facility] 02/07/20) sent in from Urology office([facility]) for concern of continued nausea, vomiting, and continued severe Right-sided flank pain after being diagonsed with an obstructive Right ureteral stone(5mm). HD stable. Labs notable for elevated Cr 1.6. Admitted for obstructive ureteral stone #Right obstructing ureteral stone(5mm) > UA(03/02/20): trace protein, neg blood, neg LE, neg nitrite > CT A/P(03/02/20): 5mm Right mid ureteral stone w/ mild-mod proximal hydronephrosis. B/l renal stones are seen, the largest 3mm on Left and 2-3mm on the Right. 2 Right renal cysts(4.9cm, 6.0cm). Left renal cyst(3.1cm). No Left ureteral stones or hydronephrosis. Prostate gland is enlarged, measuring 5.5cm, indenting posterior wall of the urinary bladder. Sigmoid diverticutlosis. Small- mod Left inguinal fat-containing hernia. - pain control: --morhpine 2mg PRN - mIVF - Urology consult([facility]): --possible OR for 03/03/20 #HOMERO --possibly 2/2 obstructive stone vs recent ibuprofen 3g usage > Cr 1.6(baseline ~1.2) - cw IVF - trend Cr #chronic HIV - ID consult(Jeffrey) --to authorize HIV meds #chronic BPH - cw home tamsulosin FEN - NS @83 - NPO in case of OR procedure DVT PPX: - SCDs, in case of procedure Family Medical History Family History: As Documented Family Hx Cancer: Mother (lung cancer) Family Hx Cardiac Disorders: Father (stroke) Visit type - Emergency Visit Emergency Visit: Yes ED Registration Date: 03/03/20 Care time: The patient presented to the Emergency Department on the above date and was hospitalized for further evaluation of their emergent condition. - New Patient This patient is new to me today: Yes Date on this admission: 03/03/20 - Critical Care Critical Care patient: No ATTENDING PHYSICIAN STATEMENT I saw and evaluated the patient. I reviewed the resident's note and discussed the case with the resident. I agree with the resident's findings and plan as documented. SUBJECTIVE: OBJECTIVE: ASSESSMENT AND PLAN:
[2020-03-03 13:32] LABS: URINE RBC 11.1 /uL (0-23.9); URINE WBC 68.5 /uL (0-25.8)
[2020-03-03 13:35] LABS: EPI CELLS 44.3 /uL (0-25.1)
[2020-03-03 13:36] LABS: HYALINE CASTS 8.09 /uL (0-3.1)
[2020-03-03] MEDS ORDERED: TAMSULOSIN HCL 0.4 MG CAP PO SCH ×2 (14:00→16:35)
--- NOTE | 2020-03-03 15:18 | PN ---
Progress Note (short form) - Note Progress Note: ID consult dictated stable hiv continue biktarvy nephrolithiasis-per urology Problem List - Problems (1) HIV (human immunodeficiency virus infection) Code(s): Z21 - ASYMPTOMATIC HUMAN IMMUNODEFICIENCY VIRUS INFECTION STATUS (2) Nephrolithiasis Code(s): N20.0 - CALCULUS OF KIDNEY
--- NOTE | 2020-03-03 16:39 | CONSULT ---
Consult Consult Specialty:: Nephrology Reason for Consultation:: HOMERO - History of Present Illness Chief Complaint: sent in from urology for abdominal pain History of Present Illness: Pt is a 64 year old male with pmhx of hiv, hld, active smoker, bph , and nephrolithiasis who is s/p lithotripsy on 02/06. He was sent in from urology for severe abdominal pain. He also had several episodes of vomiting. 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 He did take ibuprofen yesterday. He took 600 mg about 5 times. He denies hx of ckd. He denies hematuria. - Past Medical History Renal/: Yes: Renal Calculi Infectious Disease: Yes: HIV - Alcohol/Substance Use Hx Alcohol Use: Yes - Smoking History Smoking history: Current every day smoker Have you smoked in the past 12 months: Yes Aproximately how many cigarettes per day: 3 If you are a former smoker, when did you quit?: 3 Home Medications - Allergies Allergies/Adverse Reactions: Allergies Allergy/AdvReac Type Severity Reaction Status Date / Time No Known Allergies Allergy Verified 03/03/20 09:46 - Home Medications Home Medications: Ambulatory Orders Bictegrav/Emtricit/Tenofov Ala [Biktarvy 50-200-25 mg Tablet] 1 each PO DAILY #30 tablet 01/12/20 Docusate Sodium [Colace] 100 mg PO BID PRN 02/04/20 Quetiapine Fumarate [Seroquel -] 100 mg PO HS #30 tablet 02/17/20 Citalopram Hydrobromide [Celexa -] 20 tab PO DAILY 03/03/20 Oxybutynin Chloride [Oxybutynin Chloride ER] 5 mg PO DAILY 03/03/20 Sennosides [Senna Lax] 2 tab PO HS 03/03/20 Tamsulosin HCl [Flomax] 0.8 mg PO DAILY 03/03/20 Family Medical History Family Hx Cancer: Mother (lung cancer) Family Hx Cardiac Disorders: Father (stroke) Review of Systems - Review of Systems Constitutional: reports: No Symptoms Eyes: reports: No Symptoms HENT: reports: No Symptoms Neck: reports: No Symptoms Cardiovascular: reports: No Symptoms Respiratory: reports: No Symptoms Gastrointestinal: reports: Abdominal Pain Genitourinary: reports: No Symptoms Musculoskeletal: reports: No Symptoms Integumentary: reports: No Symptoms Neurological: reports: No Symptoms Endocrine: reports: No Symptoms Hematology/Lymphatic: reports: No Symptoms Psychiatric: reports: No Symptoms Physical Exam Vital Signs: Vital Signs Temperature 98.2 F 03/03/20 15:30 Pulse Rate 69 03/03/20 15:30 Respiratory Rate 17 03/03/20 15:30 Blood Pressure 118/79 03/03/20 15:30 O2 Sat by Pulse Oximetry (%) 100 03/03/20 15:30 Constitutional: Yes: Calm Eyes: Yes: Conjunctiva Clear HENT: Yes: Atraumatic Neck: Yes: Supple Cardiovascular: Yes: S1, S2 Respiratory: Yes: CTA Bilaterally Gastrointestinal: Yes: Soft Renal/: Yes: WNL Musculoskeletal: Yes: WNL Edema: No Neurological: Yes: Oriented Psychiatric: Yes: Oriented Labs: CBC, BMP 03/03/20 10:30 03/03/20 10:30 Imaging - Results Chest X-ray: Report Reviewed Problem List - Problems (1) Renal colic on right side Code(s): N23 - UNSPECIFIED RENAL COLIC (2) HIV (human immunodeficiency virus infection) Code(s): Z21 - ASYMPTOMATIC HUMAN IMMUNODEFICIENCY VIRUS INFECTION STATUS Assessment/Plan Current Medications Generic Name Dose Route Start Last Admin Trade Name Freq PRN Reason Stop Dose Admin Bictegravir/Emtricitabine/Tenofovir 1 each 03/04/20 10:00 Biktarvy 50-200-25 Mg Tablet PO DAILY MARINE Citalopram Hydrobromide 20 mg 03/04/20 10:00 Celexa - PO DAILY MARINE Docusate Sodium 100 mg 03/03/20 12:42 Colace - PO Q8H PRN CONSTIPATION Sodium Chloride 1,000 mls @ 83 mls/hr 03/03/20 12:45 03/03/20 15:26 Normal Saline - IV 83 mls/hr ASDIR MARINE Administration Morphine Sulfate 2 mg 03/03/20 12:42 Morphine Sulfate IVPUSH Q4H PRN PAIN LEVEL 7 - 10 Ondansetron HCl 4 mg 03/03/20 12:49 Zofran Injection IVPUSH Q6H PRN NAUSEA Quetiapine Fumarate 100 mg 03/03/20 22:00 Seroquel - PO HS MARINE Senna 2 tab 03/03/20 22:00 Senna - PO HS MARINE Solifenacin 5 mg 03/04/20 10:00 Vesicare - PO DAILY [facility] Tamsulosin HCl 0.8 mg 03/03/20 16:35 Flomax - PO DAILY@0830 [facility] Impression 1. HOMERO 2. nephrolithiasis 3. hiv 4. abdominal pain 5. hydronephrosis Plan - cont hydration - urology eval - d/c nsaids - repeat labs in am - ct report is from [facility] - avoid nephrotoxins - urology eval for hydro - outpt stone workup
[2020-03-03] MEDS ORDERED: LACTATED RINGERS SOLUTION 1,000 ML IV SCH ×2 (17:30→19:31)
--- NOTE | 2020-03-03 18:02 | CONS ---
DATE OF CONSULTATION: DATE OF DICTATION: 03/03/2020 INFECTIOUS DISEASE CONSULTATION HISTORY OF PRESENT ILLNESS: This is a 64-year-old man who has a history of stable HIV, hyperlipidemia, he has a history of nephrolithiasis. He is status post recent shockwave lithotripsy February [address] Froylan Elaine. He presented to the clinic on the morning with complaints of severe right-sided pain and vomiting. He came to the emergency room, where he was found to have a 5-mm ureteral stone with mild to moderate proximal hydronephrosis. He has bilateral renal stones and was actually scheduled to have a left-sided lithotripsy on Friday. He had no fevers or chills, was otherwise feeling well, and yesterday he was discharged from the emergency room home. He continued to have severe pain and vomiting overnight. He saw his urologist this morning, who referred him to the ER again for intractable pain. He denies again fevers and chills. He is receiving IV hydration in the ER, and otherwise feels well. He reports taking his HIV medications this morning, he had been on the same regimen for the last 3 years. He has a past medical history of HIV, hyperlipidemia, nephrolithiasis. SURGICAL HISTORY: Notable for appendectomy and hernia repair. SOCIAL HISTORY: He is a current cigarette smoker, reports been sober and substance free in terms of drugs and alcohol for the last 6 years. He resides alone across from the [facility]. 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 ALLERGIES: No known drug allergies. MEDICATION: As an outpatient include Biktarvy, oxybutynin, tamsulosin, Colace, Celexa, and Seroquel, as well as he was started on ibuprofen. REVIEW OF SYSTEMS: His vomiting has stopped. He continues to have some right-sided colicky pain. He has no fevers or chills. He has no chest pain, shortness of breath, dysuria, or diarrhea. PHYSICAL EXAMINATION: General: He is resting comfortably. HEENT: Normocephalic. Eyes are anicteric. Neck: Supple. Lungs: Clear to auscultation. Heart: Regular rate and rhythm. Abdomen: Soft. He has some mild right-sided CVA discomfort. He has some mild suprapubic discomfort. He reports he needs to empty his bladder otherwise. Extremities: Without edema. Skin: He has no rash. LABORATORY: Notable for a normal white count. His creatinine is elevated at 1.6. He had a urine culture done yesterday that is negative. Chest x-ray that is done today that is normal. CAT scan findings are as previously stated in the HPI. IMPRESSION: 1. In summary, this is a 64-year-old man with nephrolithiasis, scheduled for surgery later today with urologist. 2. Stable human immunodeficiency virus, would continue antiretrovirals. He is on Biktarvy. Would follow up at the [facility]. PHYLLIS YAP M.D. [id number]
--- NOTE | 2020-03-03 18:23 | CONSULT ---
Consult - text type - Consultation Consultation Note: CC: right renal colic s/p right ESWL HPI: Patient with history of increasing right flank pain with nausea and vomiting. The patient denies fever or chills. The patient is in extreme distress secondary to the stone. Patient had presented 24 hours earlier to the ER and had his pain controlled and discharged. The patient has an obstructing 5 mm stone on the right side with mild to moderaterate hydroureteronephrosis. Patient with rising creatinine consistent with acute kidney injury PE vss; afeb abd-soft with right CVAT genitalia-nl phallus and testes imp acute kidney injury right hydronephrosis with renal and ureteral stones renal colic plan discussed option with patient and emergent relief of right ureteral obstruction is needed to avoid permanent renal injury discussed x 25 minutes
[2020-03-03] MEDS ORDERED: MIDAZOLAM HCL 2 MG/2 ML SINGLE DOSE VIAL ONE (18:26)
[2020-03-03] MEDS ORDERED: PROPOFOL 20 ML ONE (18:27)
[2020-03-03] MEDS ORDERED: GENTAMICIN SO4 80 MG/2 ML VIAL ONE (18:29)
[2020-03-03] MEDS ORDERED: ceFAZolin SODIUM 1 GM VIAL ONE (18:29)
[2020-03-03] MEDS ORDERED: ceFAZolin SODIUM 1 GM VIAL IVPB ONE (18:30)
[2020-03-03] MEDS ORDERED: GENTAMICIN 80MG PREMIX BAG IVPB ONE (18:30)
[2020-03-03] MEDS ORDERED: EPHEDRINE SULFATE/0.9% NACL/PF 50 MG/10 ML SYRINGE NR ONE (18:35)
[2020-03-03] MEDS ORDERED: LIDOCAINE HCL 2% JELLY (5 ML/TUBE) ONE (18:42)
[2020-03-03] MEDS ORDERED: LIDOCAINE HCL/PF 2% SDV 5ML VIAL ONE (18:42)
--- NOTE | 2020-03-03 19:16 | OP ---
Operative Note - Note: Operative Date: 03/03/20 Pre-Operative Diagnosis: right obsructing ureteral stone Operation: cystoscopy/right retrograde pyelogram/right ureteroscopic stone manipulation and stent placement Findings: obstructing proximal right ureteral stone Post-Operative Diagnosis: Same as Pre-op Surgeon: Denys Lemos Anesthesia: General Drains & Tubes with Location: 01/06 right ureteral stent Operative Report Dictated: Yes
[2020-03-03] MEDS ORDERED: QUEtiapine FUMARATE 100 MG TABLET (FP) PO SCH (22:00)
[2020-03-03] MEDS ORDERED: QUEtiapine FUMARATE 50 MG TABLET PO SCH (22:00)
[2020-03-03] MEDS ORDERED: SENNOSIDES 8.6MG TABLET (FP) PO SCH ×2 (22:00)
[2020-03-03] MEDS: MORPHINE SULFATE 2 MG/ML VIAL IVPUSH PRN (22:15)
[2020-03-03] MEDS: SODIUM CHLORIDE 1,000 ML IV SCH (22:18)
[2020-03-04 06:31] LABS: HEMOGLOBIN 11.6 GM/dL (11.7-16.9); MCH 32.5 pg (25.7-33.7); MCHC 35.1 g/dl (32.0-35.9); MEAN CELL VOLUME 92.6 fl (80-96); MEAN PLT VOLUME 8.5 fl (7.5-11.1); PLATELET COUNT 234 K/MM3 (134-434); RBC 3.57 M/mm3 (4.00-5.60); RDW 13.8 % (11.9-15.9); WHITE BLOOD COUNT 4.6 K/mm3 (4.0-10.0)
[2020-03-04 06:51] LABS: BLOOD UREA NITROGEN 15.3 mg/dL (7-18); CALCIUM 8.1 mg/dL (8.5-10.1); CREATININE 1.4 mg/dL (0.55-1.3); MAGNESIUM 2.2 mg/dL (1.8-2.4); PHOSPHOROUS 3.7 mg/dL (2.5-4.9); POTASSIUM 3.8 mmol/L (3.5-5.1)
[2020-03-04] MEDS ORDERED: PT OWN MED DRAWER 7, Y5N ONE (08:17)
[2020-03-04] MEDS: MORPHINE SULFATE 2 MG/ML VIAL IVPUSH PRN (08:25)
[2020-03-04] MEDS ORDERED: TAMSULOSIN HCL 0.4 MG CAP PO SCH (08:30)
[2020-03-04 08:37] VITALS: BP 115/62; PULSE 61; TEMP 98.8
[2020-03-04] MEDS: SODIUM CHLORIDE 1,000 ML IV SCH (09:31)
[2020-03-04] MEDS ORDERED: SOLIFENACIN SUCCINATE 5 MG TAB PO SCH ×2 (10:00)
[2020-03-04] MEDS ORDERED: CITALOPRAM HYDROBROMIDE 20 MG TABLET PO SCH ×2 (10:00)
[2020-03-04] MEDS ORDERED: BICTEGRAV/EMTRICIT/TENOFOV (BIKTARVY) 50-200-25 MG TABLET PO SCH ×2 (10:00)
--- NOTE | 2020-03-06 22:03 | EKG ---
Test Reason : Blood Pressure : / mmHG Vent. Rate : 064 BPM Atrial Rate : 064 BPM P-R Int : 148 ms QRS Dur : 086 ms QT Int : 412 ms P-R-T Axes : 048 014 039 degrees QTc Int : 425 ms NORMAL SINUS RHYTHM NORMAL ECG WHEN COMPARED WITH ECG OF 23-FEB-2020 12:27, NO SIGNIFICANT CHANGE WAS FOUND Confirmed by LUCÍA DIAL MD ([id number]) on 03/06/2020 10:03:22 PM Referred By: Confirmed By:LUCÍA DIAL MD
--- NOTE | 2020-03-08 20:50 | OP ---
DATE OF OPERATION: 03/03/2020 PREOPERATIVE DIAGNOSIS: Obstructing right ureteral stone. POSTOPERATIVE DIAGNOSIS: Obstructing right ureteral stone. PROCEDURE: Cystoscopy, right retrograde pyelogram, right ureteroscopic stone manipulation, and stent placement. ATTENDING: Carlos Noyola MD ANESTHESIA: Fractional. DESCRIPTION OF OPERATION: Patient was brought in the operating room, placed in supine position on the operating room table. Anesthesia and preoperative antibiotics were administered to the patient. The patient was then prepped and draped in the usual sterile manner and placed in the dorsal lithotomy position. Cystoscopy was performed. There was no evidence of neoplasm within the bladder. No stones were noted within the bladder. A retrograde pyelogram showed a grade 4/5 hydroureteronephrosis with a proximal filling defect consistent with a stone. A wire was passed proximally. After which, rigid ureteroscopy was performed. When the stone was visualized, it was noted to be impacted. It was disimpacted and traveled into the kidney. At this point, blood-tinged urine with debris started draining from the obstructed kidney. This made visualization of the stone difficult. It was decided that the patient would be better served with a ureteral stent and a followup shock wave lithotripsy. The patient had a 6-Uzbek, 26-cm right ureteral stent placed utilizing the Seldinger technique. No complications were noted. The patient tolerated the procedure very well. CARLOS NOYOLA M.D. /[id number]
== END 2020-03-04 11:30 | disposition home or self-care (01) | DRG 465 ==
LOC: JER 09:45 → JERBED 11:38 → J7W 18:40
PROVIDERS: ADMIT Internal Medicine; ATTEND Student in an Organized Health Care Education/Training Program
PROC: 0T768DZ Dilation of Right Ureter with Intraluminal Device, Via Natural or Artificial Opening Endoscopic (ICD-10-PCS; principal; 2020-03-03 17:30)
PROC: BT1DZZZ Fluoroscopy of Right Kidney, Ureter and Bladder (ICD-10-PCS; 2020-03-03 17:30)
DX: N13.2 Hydronephrosis with renal and ureteral calculous obstruction (principal); N40.0 Benign prostatic hyperplasia without lower urinary tract symptoms; N28.1 Cyst of kidney, acquired; K57.90 Diverticulosis of intestine, part unspecified, without perforation or abscess without bleeding; K40.90 Unilateral inguinal hernia, without obstruction or gangrene, not specified as recurrent; N17.9 Acute kidney failure, unspecified; Z21 Asymptomatic human immunodeficiency virus [HIV] infection status
CPT/HCPCS: 36415; 71045-TC-FY; 80048; 80053; 81003; 83735; 84100; 85025; 85027; 85610; 85730; 86850; 86900; 86901; 87086; 93005; 93010; 94760; 99285-25; J0131; U0003

== ENCOUNTER 2020-04-27 12:56 | Emergency (ER) | payer OTHER ==
[2020-04-27 13:16] VITALS: BP 158/90; PULSE 88; TEMP 98.4; BMI 24.4
--- OUTSIDE RECORDS SUMMARY | 2020-04-27 13:58 | XMS ---
:1955 Author Organization [facility] Care Team Providers Name Role Phone [facility], [facility] Unavailable Unavailable Re-disclosure Warning The records that you are about to access may contain information from federally- assisted alcohol or drug abuse programs. If such information is present, then the following federally mandated warning applies: This information has been disclosed to you from records protected by federal confidentiality rules (42 CFR part 2). The federal rules prohibit you from making any further disclosure of this information unless further disclosure is expressly permitted by the written consent of the person to whom it pertains or as otherwise permitted by 42 CFR part 2. A general authorization for the release of medical or other information is NOT sufficient for this purpose. The Federal rules restrict any use of the information to criminally investigate or prosecute any alcohol or drug abuse patient.The records that you are about to access may contain highly sensitive health information, the redisclosure of which is protected by Article 27-F of the [facility] Public Health law. If you continue you may haveaccess to information: Regarding HIV / AIDS; Provided by facilities licensed or operated by the [facility] Office of Mental Health; or Provided by the [facility] Office for People With Developmental Disabilities. If such information is present, then the following [facility] mandated warning applies: This information has been disclosed to you from confidential records which are protected by state law. State law prohibits you from making any further disclosure of this information without the specific written consent of the person to whom it pertains, or as otherwise permitted by law. Any unauthorized further disclosure in violation of state law may result in a fine or penitentiary sentence or both. A general authorization for the release of medical or other information is NOT sufficient authorization for further disclosure. Encounters Encounter Providers Location Date Indications Data Source(s ) Outpatient Attender: [facility] 04/17/2020 [facility] ([facility] 03:44:34 PM Care [facility]) EDT Patient admitted. Outpatient Attender: [facility] 02/12/2020 11:30:08 AM [facility] ([facility] [place]) Patient admitted. Outpatient Attender: [address] 12/21/2019 11:10:32 AM [facility] ([facility] [place]) Patient admitted. Outpatient Attender: [address] 08/31/2019 11:56:00 AM [facility] ([facility]) Patient admitted. Insurance Providers Payer name Policy type Policy ID Covered Covered democrat's Policy P jamarcus / Coverage democrat ID relationship to [facility]ios Inf ormation type rios ED [id number] SP [id number] 500 HEALTH NON CAP MEDICAID [id number] SP [id number] ED [id number] 500 HEALTH NON CAP Results ID Date Data Source [id number] 03/03/2020 12:25:00 PM EDT [facility] Name Value Range Interpretation Description Data Sup porting Code Source(s) Document(s ) SARS [facility] coronavirus 2 RNA This lab was ordered by [facility] and reported by [facility]. ID Date Data Source [id number] 03/01/2020 09:10:00 AM EDT [facility] Name Value Range Interpretation Description Data Sup porting Code Source(s) Document(s ) SARS [facility] coronavirus 2 RNA This lab was ordered by [facility] and reported by [facility]. ID Date Data Source [id number] 02/02/2020 10:37:00 AM EDT [facility] Name Value Range Interpretation Description Data Sup porting Code Source(s) Document(s ) SARS [facility] coronavirus 2 RNA This lab was ordered by [facility] and reported by [facility]. ID Date Data Source [id number] 11/23/2019 12:00:00 AM EDT [facility] Name Value Range Interpretation Code Description Data Jeannette rce(s) Supporting Document(s ) 2019-nCoV [facility] RNA XXX RADHA+probe- Imp This lab was ordered by [facility] and reported by [employer] Procedure
--- NOTE | 2020-04-27 14:13 | PDOC ---
History of Present Illness - General Chief Complaint: Pain, Acute Stated Complaint: LWR BACK/STOMACH PAIN Time Seen by Provider: 04/27/20 13:47 History Source: Patient Exam Limitations: Clinical Condition - History of Present Illness Initial Comments: 04/27/20 14:45 Patient with history of renal stone status post stent placement [address] Lemos urologist present today to CAT scan for outpatient CT and was sent from CAT scan to emergency room due to complaint of worsening hematuria and right-sided flank pain. Patient surgery scheduled for lithotripsy in July 15 due to unable to remove a large stone during stent placement 2 months ago and is scheduled for lithotripsy to break down the stone. Patient report has been having hematuria since stent placement 2 months ago and is being followed by urology. Patient reported saw urologist yesterday which he was told the gross hematuria is not normal and was sent for CT today as patient was also seen by urology again today. Reports severe right flank pain. Denies nausea, vomiting, fever, chills. Is this a multiple visit Asthma Patient?: No Timing/Duration: getting worse Past History - Medical History Allergies/Adverse Reactions: Allergies Allergy/AdvReac Type Severity Reaction Status Date / Time No Known Allergies Allergy Verified 04/27/20 14:46 Home Medications: Ambulatory Orders Bictegrav/Emtricit/Tenofov Ala [Biktarvy 50-200-25 mg Tablet] 1 each PO DAILY #30 tablet 01/12/20 Tamsulosin HCl [Flomax] 0.8 mg PO DAILY 03/03/20 Mirabegron [Myrbetriq] 1 tab PO DAILY 03/29/20 Citalopram Hydrobromide [Celexa -] 20 mg PO DAILY #30 tablet 04/13/20 Quetiapine Fumarate [Seroquel -] 50 mg PO BID #60 tablet 04/13/20 Quetiapine Fumarate [Seroquel -] 100 mg PO HS #30 tablet 04/13/20 Diclofenac Sodium [Pennsaid] 2 pump TD BID #1 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 04/14/20 traMADol HCL [Ultram] 50 mg PO Q8H PRN 2 Days #3 tablet MDD 2 04/27/20 Anemia: No Asthma: No Cancer: No Cardiac Disorders: No CVA: No COPD: No CHF: No Dementia: No Diabetes: No GI Disorders: Yes (COLON POLYPS) Disorders: Yes (BPH) HTN: No Hypercholesterolemia: Yes Kidney Stones: No Liver Disease: No Psychiatric Problems: Yes Seizures: No Thyroid Disease: No - Surgical History Abdominal Surgery: No Appendectomy: No Cardiac Surgery: No Cholecystectomy: No Lung Surgery: No Neurologic Surgery: No Orthopedic Surgery: No - Reproductive History Testicular Surgery: No - Immunization History Immunization Up to Date: No - Psycho-Social/Smoking History Smoking History: Never smoked Have you smoked in the past 12 months: Yes Number of Cigarettes Smoked Daily: 3 If you are a former smoker, when did you quit?: 3 Cigars Per Day: 0 'Breaking Loose' booklet given: 03/03/20 - Substance Abuse Hx (Audit-C & DAST Scrn) How often the patient has a drink containing alcohol: Never Score: In Men: 4 or > Positive; In Women: 3 or > Positive: 0 Screen Result (Pos requires Nsg. Audit-10AR): Negative In the last yr the pt used illegal drug/Rx for NonMed reason: No Score: Yes response is considered Positive: 0 Screen Result (Positive result requires Nsg. DAST-10): Negative Review of Systems - Review of Systems Able to Perform ROS?: Yes Is the patient limited Nigerian proficient: No Constitutional: No: Chills, Fever, Malaise HEENTM: No: Symptoms Reported, See HPI, Eye Pain, Blurred Vision, Tearing, Recent change in vision, Double Vision, Cataracts, Ear Pain, Ocular Prothesis, Ear Discharge, Nose Pain, Nose Congestion, Tinnitus, Nose Bleeding, Hearing Loss, Throat Pain, Throat Swelling, Mouth Pain, Dental Problems, Difficulty Swallowing, Mouth Swelling, Other Respiratory: No: Symptoms reported, See HPI, Cough, Orthopnea, Shortness of Breath, SOB with Exertion, SOB at Rest, Stridor, Wheezing, Productive cough, Hemoptysis, Other Cardiac (ROS): No: Symptoms Reported, See HPI, Chest Pain, Edema, Irregular Heart Rate, Lightheadedness, Palpitations, Syncope, Chest Tightness, Other ABD/GI: No: Symptoms Reported : Yes: Symptoms Reported, See HPI, Hematuria, Pain (right flank pain). No: Burning, Testicular Mass, Testicular Swelling All Other Systems: Reviewed and Negative *Physical Exam - Vital Signs Last Vital Signs Temp Pulse Resp BP Pulse Ox 98.4 F 88 18 158/90 100 04/27/20 13:10 04/27/20 13:10 04/27/20 13:10 04/27/20 13:10 04/27/20 13:10 - Physical Exam 04/27/20 14:51 GENERAL: Well developed, well nourished. Awake and alert. No acute distress. NECK: Supple. Full ROM. CARDIOVASCULAR: Regular rate and rhythm. No murmurs, rubs, or gallops. PULMONARY: No evidence of respiratory distress. Lungs clear to auscultation bilaterally. No wheezing, rales or rhonchi. ABDOMINAL: Soft. Moderate subjective right flank pain. Non-distended. No rebound or guarding. No organomegaly. Normoactive bowel sounds. MUSCULOSKELETAL Normal range of motion at all joints. SKIN: Warm and dry. Normal capillary refill. No rashes. No jaundice. NEUROLOGICAL: Alert, awake, appropriate. Gait is normal without ataxia. PSYCHIATRIC: Cooperative. Good eye contact. Appropriate mood General Appearance: Yes: Nourished, Appropriately Dressed. No: Apparent Distress Medical Decision Making - Medical Decision Making 04/27/20 14:48 Patient with history of renal stone status post stent placement [address] Lemos urologist present today to CAT scan for outpatient CT and was sent from CAT scan to emergency room due to complaint of worsening hematuria and right-sided flank pain. Patient surgery scheduled for lithotripsy in July 15 due to unable to remove a large stone during stent placement 2 months ago and is scheduled for lithotripsy to break down the stone. Patient report has been having hematuria since stent placement 2 months ago and is being followed by urology. Patient reported saw urologist yesterday which he was told the gross hematuria is not normal and was sent for CT today as patient was also seen by urology again today. Reports severe right flank pain. Denies nausea, vomiting, fever, chills. Patient came to the ED today as he wants stents removed Exam significant for subjective severe right flank pain with patient in no acute apparent distress. Otherwise normal exam. Called and spoke to urologist who reported patient is scheduled for stent removal tomorrow in the office and patient can be discharged to follow-up in office tomorrow if stable. Plan discussed with patient and patient reported he was unaware stents were scheduled to be removed tomorrow and agrees to discharge to follow-up in office tomorrow for stent removal. Abdominal and pelvic CT done today on outpatient basis shows small nonobstructive stones. Previously large stone warranting stent placement is not visible at this time and likely patient passed a stone. Ultram 50 mg p.o. ordered for pain. Patient stable for discharge on Ultram as needed for severe pain with follow-up in urology office tomorrow for stent removal Discharge - Discharge Information Problems reviewed: Yes Clinical Impression/Diagnosis: Flank pain with history of urolithiasis, Renal colic on right side, Hematuria, microscopic Condition: Stable Disposition: HOME - Admission No - Additional Discharge Information Prescriptions: traMADol HCL [Ultram] 50 mg PO Q8H PRN 2 Days #3 tablet MDD 2 PRN Reason: pain - Follow up/Referral Referrals: Denys Lemos MD [Staff Physician] - - Patient Discharge Instructions Additional Instructions: Take prescribed medication as needed for severe pain. Follow-up with urologist office tomorrow as scheduled for stent removal - Post Discharge Activity
[2020-04-27] MEDS ORDERED: traMADol HCL 50 MG TABLET ONE (14:32)
[2020-04-27] MEDS ORDERED: traMADol HCL 50 MG TABLET PO ONE (14:35)
== END 2020-04-27 15:25 | disposition home or self-care (01) ==
LOC: JER 12:56
DX: N23 Unspecified renal colic (principal); R31.0 Gross hematuria; Z87.442 Personal history of urinary calculi
CPT/HCPCS: 99283-25

== ENCOUNTER 2022-02-04 05:11 | Day surgery (SDC) | payer OTHER ==
[2022-01-31 12:06] VITALS: BMI 31.9
[2022-02-04] MEDS ORDERED: PROPOFOL 20 ML ONE ×2 (09:17)
[2022-02-04] MEDS ORDERED: KETOROLAC TROMETHAMINE 30 MG/1 ML VIAL ONE (09:18)
[2022-02-04] MEDS ORDERED: MIDAZOLAM HCL 2 MG/2 ML SINGLE DOSE VIAL ONE (09:18)
[2022-02-04 10:34] VITALS: RESP 20
[2022-02-04 11:32] VITALS: BP 135/85; PULSE 58; TEMP 97
== END 2022-02-04 12:10 | disposition home or self-care (01) ==
LOC: JASU-SURG 05:11
PROVIDERS: ATTEND Urology
PROC: 0TF3XZZ Fragmentation in Right Kidney Pelvis, External Approach (ICD-10-PCS; principal; 2022-02-04 09:46)
DX: N20.0 Calculus of kidney (principal)

== ENCOUNTER 2022-03-04 04:07 | Day surgery (SDC) | payer OTHER ==
[2022-02-27 12:25] VITALS: BMI 31.9
[2022-03-04] MEDS ORDERED: MIDAZOLAM HCL 2 MG/2 ML SINGLE DOSE VIAL ONE (09:16)
[2022-03-04] MEDS ORDERED: PROPOFOL 20 ML ONE (09:56)
[2022-03-04 10:51] VITALS: RESP 18
[2022-03-04] MEDS ORDERED: oxyCODONE HCL 5 MG TABLET PO PRN (11:03)
[2022-03-04] MEDS ORDERED: ACETAMINOPHEN 500 MG TABLET (FP) PO PRN (11:03)
[2022-03-04] MEDS ORDERED: ONDANSETRON 4 MG/2 ML VIAL IVPUSH PRN (11:03)
[2022-03-04 11:10] VITALS: BP 113/69; PULSE 56; TEMP 97.5
[2022-03-04] MEDS ORDERED: LACTATED RINGERS SOLUTION 1,000 ML IV SCH (11:15)
== END 2022-03-04 11:57 | disposition home or self-care (01) ==
LOC: JASU-SURG 04:07
PROVIDERS: ATTEND Urology
PROC: 0TF4XZZ Fragmentation in Left Kidney Pelvis, External Approach (ICD-10-PCS; principal; 2022-03-04 09:57)
DX: N20.0 Calculus of kidney (principal)